=== PATIENT | female | born 1985 | race Caucasian/White ===

== ENCOUNTER 2023-01-30 12:54 | Emergency (ER) | payer OTHER, MEDICAID, SELFPAY ==
[2023-01-30 12:57] VITALS: BP 111/80; PULSE 114; RESP 16; TEMP 36.7; O2SAT 97; BMI 36.1
--- NOTE | 2023-01-30 12:57 | US_ITS ---
WS: [id number] NUMBER: Single PRESENTATION: Vertex CARDIAC ACTIVITY: 164 MOVEMENT: Satisfactory AMNIOTIC FLUID VOLUME: Normal. NIRANJAN equals 17.27 cm PLACENTA: Anterior no previa no abruption BIPARIETAL DIAMETER MEASUREMENTS: 7.6 cm, equals 30w3d. FEMORAL LENGTH MEASUREMENTS: 5.8 cm, equals 30w1d. ABDOMINAL CIRCUMFERENCE: 25.6 cm, equals 29w5d. ESTIMATED WEIGHT: 1497 g; 49% based on ultrasound ESTIMATED GESTATIONAL AGE: 30w2d US/US OB limited [id number] IMPRESSION: Viable intrauterine with single fetus estimated at 30w2d 04/08/2023.
--- NOTE | 2023-01-30 13:16 | ED_ITS ---
HPI - Abdominal Pain General: Chief Complaint: Abdominal Pain Stated Complaint: abd pain, sent by OB, 5-6 months along Time Seen by Provider: 01/30/23 12:58 Source: patient Mode of arrival: ambulatory Limitations: no limitations History of Present Illness: 37-year-old female who believes she is 5 to 6 months she came in with lower abdominal cramping and pain she was seen in labor and delivery first but sent over here she is not sure of her dates and has not had an ultrasound. She denies any bleeding or fevers Associated Symptoms: Denies chills, diarrhea, fever(s), nausea and vomiting Review of Systems Const: Denies: fever(s), chills, body aches or change in appetite Eyes: Denies: blurry vision or eye discomfort ENMT: Denies: throat pain or dental pain Card: Denies: chest pain Resp: Denies: dyspnea GI: Reports: abdominal pain; Denies: nausea, vomiting or diarrhea Musc: Denies: neck pain or back pain Skin/Breast: Denies: rash Neuro: Denies: headache(s) Physical Exam Const: COMMON NORMALS: no acute distress, patient oriented x3 and healthy appearing HENMT: COMMON NORMALS: normocephalic and atraumatic HEAD & SCALP: normocephalic and atraumatic Eye: COMMON NORMALS: conjunctivae normal CONJUNCTIVA: Yes conjunctivae normal Neck/C-Spine: COMMON NORMALS: full ROM and supple Chest: COMMONS NORMALS: normal inspection of the chest Resp: COMMON NORMALS: normal respiratory effort Cardio: COMMON NORMALS: regular rate, regular rhythm and No murmurs present (Cardio) RATE: regular rate RHYTHM: regular rhythm GI: COMMON NORMALS: Soft to palpation and non-tender INSPECTION: Yes normal to inspection PALPATION: Yes Soft to palpation Extremity: COMMON NORMALS: normal to inspection and full ROM Neuro: COMMON NORMALS: patient oriented x3, moves all extremities and no focal motor deficits Psych: COMMON NORMALS: mental status grossly normal, Normal thought process present and cooperative THOUGHT PROCESS: Normal thought process present Skin: COMMON NORMALS: no rashes or lesions noted and no wounds GENERAL SKIN EXAM: no rashes or lesions noted Course Vital Signs: Vital signs: Vital Signs Temperature 98.0 F 01/30/23 12:57 Pulse Rate 114 H 01/30/23 12:57 Respiratory Rate 16 01/30/23 12:57 Blood Pressure 111/80 01/30/23 12:57 Pulse Oximetry 97 01/30/23 12:57 Oxygen Delivery Me thod Room Air 01/30/23 12:57 MDM - Abdominal Pain Medical Decision Making Patient presents here with abdominal pain in ultrasound here shows that she is 30 weeks we will discharge her back to labor and delivery Medical Records I reviewed the patient's medical records. Discharge Plan Discharge Patient Disposition: Home Clinical Impression: Abdominal pain affecting Condition: Stable Prescriptions: No Action Excedrin Migraine 250-250-65 mg Tablet 2 tab PO Q6H PRN (Reason: Migraine Headache) Discharge Orders: Discharge ED (Routine); Ordered 01/30/23 Ordered By: Godwin Sethi Referrals: Joan Anderson MD [Primary Care Provider] - Patient Instructions: Abdominal Pain (ED) Coding Level of Care Code ED Labor And Employment Paralegal for Jerri Pedersen
[2023-01-30 14:11] LABS: Amphetamines Screen Urine Negative (Negative); Barbiturates Screen Urine Negative (Negative); Benzodiazepines Screen Urine Negative (Negative); Cocaine Screen Urine Negative (Negative); Opiate Screen Urine Negative (Negative); PCP Screen Urine Negative (Negative); THC Screen Urine Negative (Negative)
[2023-01-30 14:27] LABS: Blood Urine Neg (Negative); Glucose Urine UA Norm (Normal); Ketones Urine 1+ (Negative); Nitrate Urine Negative (Negative); Protein Urine Neg (Negative); Urine Appearance SL Hazy (CLEAR); Urine Color Yellow (Yellow); pH Urine 6 (5-7)
[2023-01-30 14:28] LABS: Add Urine Microscopic? YES; Bilirubin Urine Neg (Negative); Leukocyte Esterase Urine Trace (Negative); Urobilinogen Urine Norm (Negative)
[2023-01-30 14:32] LABS: Bacteria Urine 1+ /hpf; Mucus Urine 3+ /hpf; RBC Urine 0-4 /hpf (0-2)
[2023-01-30 14:33] LABS: Add Urine Culture? No
== END 2023-01-30 14:12 | disposition home or self-care (01) ==
PROVIDERS: Emergency Provider Emergency Medicine; PCP Family Medicine
DX: O26.893 Other specified pregnancy related conditions, third trimester (principal); R10.30 Lower abdominal pain, unspecified; Z3A.30 30 weeks gestation of pregnancy
CPT/HCPCS: 76815; 80306; 81001; 99284

== ENCOUNTER 2023-01-30 13:56 | Outpatient (CLI) | payer OTHER, MEDICAID, SELFPAY ==
[2023-01-30 13:56] VITALS: BMI 35.3
[2023-01-30 14:14] VITALS: BP 125/80; PULSE 100
[2023-01-30 15:03] LABS: Basophils % 0.2 %; Eosinophils % 0.1 %; Hematocrit 36.4 % (37.0-47.0); Hemoglobin 12.4 g/dL (11.5-15.3); Lymphocytes # 1.2 10^3/uL (0.8-4.8); Lymphocytes % 8.8 %; Mean Corpuscular HGB Conc 34.1 g/dL (30.0-36.0); Mean Corpuscular Hemoglobin 29.1 pg (28.0-34.0); Mean Corpuscular Volume 85.4 fl (81-99); Mean Platelet Volume 9.2 fL (7.4-10.4); Monocytes # 0.6 10^3/uL (0.2-0.9); Monocytes % 4.4 %; Neutrophils # 11.39 10^3/uL (1.8-7.7); Neutrophils % 85.9 %; Nucleated Red Blood Cells % 0 %; Platelet Count 195 10^3/cmm (130-400); Red Blood Count 4.26 10^6/uL (4.1-5.3); Red Cell Distribution Width 13.9 % (12.1-15.1); White Blood Count 13.3 10^3/uL (4.0-10.0)
[2023-01-30 15:27] LABS: Alanine Aminotransferase 8 U/L (0-33); Albumin Level 3.5 g/dL (3.5-5.2); Alkaline Phosphatase 98 U/L (35-105); Anion Gap 15.7 (5-19); Aspartate Amino Transferase 9 U/L (0-32); Blood Urea Nitrogen 4 mg/dL (6-20); Calcium 8.6 mg/dL (8.5-10.5); Carbon Dioxide 19 mmol/L (22-29); Chloride 102 mmol/L (98-107); Globulin 2.9 g/dL (1.3-4.6); Glomerular Filtration Rate 177.7 mL/min (90-130); Glucose 99 mg/dL (65-115); Osmolality Calculated 273 mOsm/kg (285-295); Potassium 3.7 mmol/L (3.5-5.1); Sodium 133 mmol/L (136-145); Total Bilirubin 0.3 mg/dL (0.15-1.2); Total Protein 6.4 g/dL (6.6-8.7)
[2023-01-30 15:39] LABS: Hepatitis B Surface Antigen Non-Reactive (Nonreactive)
[2023-01-30 15:44] LABS: Rapid Plasma Reagin Syphilis Nonreactive (Nonreactive)
[2023-01-30 15:46] LABS: HIV 1 & 2 Antibody Non-Reactive (Non-Reactiv); HIV 1 & 2 Antigen Non-Reactive (Non-Reactiv)
[2023-01-30] MEDS: lactated ringers 1,000 ML 999 ML IV (15:48)
[2023-01-30 16:27] VITALS: BP 123/77; PULSE 96
== END 2023-01-30 16:35 | disposition home or self-care (01) ==
LOC: OPOB 13:57 → OBGYN 13:58
PROVIDERS: PCP Family Medicine; Visit Provider Family Medicine
DX: O26.893 Other specified pregnancy related conditions, third trimester (principal); R10.9 Unspecified abdominal pain; Z3A.32 32 weeks gestation of pregnancy
CPT/HCPCS: 36415; 59025; 80053; 85025; 86592; 86762; 86850; 86900; 87340; 87491; 87591; 87806; 99211; J7120

== ENCOUNTER 2023-03-12 10:15 | Outpatient (CLI) | payer OTHER, MEDICAID, SELFPAY ==
[2023-03-12 10:15] VITALS: RESP 17; BMI 37.4
[2023-03-12 10:25] VITALS: BP 138/86; PULSE 73
[2023-03-12 10:40] VITALS: BP 128/85; PULSE 66
== END 2023-03-12 10:50 | disposition home or self-care (01) ==
LOC: OPOB 10:16 → OBGYN 10:18
PROVIDERS: PCP Family Medicine; Visit Provider Family Medicine
DX: O24.419 Gestational diabetes mellitus in pregnancy, unspecified control (principal); Z3A.00 Weeks of gestation of pregnancy not specified
CPT/HCPCS: 59025; 99211

== ENCOUNTER 2023-03-16 08:55 | Outpatient (CLI) | payer OTHER, MEDICAID, SELFPAY ==
[2023-03-16 09:00] VITALS: BMI 37.5
[2023-03-16 09:09] VITALS: BP 132/89; PULSE 87
[2023-03-16 09:24] VITALS: BP 131/87; PULSE 82
[2023-03-16 09:39] VITALS: BP 130/86; PULSE 76
[2023-03-16 10:00] VITALS: BP 130/86; PULSE 76
== END 2023-03-16 10:00 | disposition home or self-care (01) ==
LOC: OPOB 08:56 → OBGYN 08:57
PROVIDERS: PCP Family Medicine; Visit Provider Family Medicine
DX: O24.419 Gestational diabetes mellitus in pregnancy, unspecified control (principal); Z3A.00 Weeks of gestation of pregnancy not specified
CPT/HCPCS: 59025; 99211

== ENCOUNTER 2023-03-19 11:28 | Outpatient (CLI) | payer OTHER, MEDICAID, SELFPAY ==
[2023-03-19 11:33] VITALS: BMI 34.8
[2023-03-19 11:34] VITALS: RESP 20; TEMP 36.8
[2023-03-19 11:52] VITALS: BP 131/86; PULSE 81
[2023-03-19 12:07] VITALS: BP 131/80; PULSE 74
== END 2023-03-19 12:16 | disposition home or self-care (01) ==
LOC: OPOB 11:31 → OBGYN 11:33 → OPOB 11:40
PROVIDERS: PCP Family Medicine; Visit Provider Family Medicine
DX: O24.419 Gestational diabetes mellitus in pregnancy, unspecified control (principal); Z3A.00 Weeks of gestation of pregnancy not specified
CPT/HCPCS: 59025

== ENCOUNTER 2023-03-23 09:59 | Outpatient (CLI) | payer OTHER, MEDICAID, SELFPAY ==
[2023-03-23 10:12] VITALS: BP 129/79; PULSE 99
[2023-03-23 10:15] VITALS: BMI 38.4
[2023-03-23 10:17] VITALS: RESP 16
[2023-03-23 10:28] VITALS: BP 128/80; PULSE 92
[2023-03-23 10:37] VITALS: BP 128/80; PULSE 92
== END 2023-03-23 10:38 | disposition home or self-care (01) ==
LOC: OPOB 10:08 → OBGYN 10:09
PROVIDERS: PCP Family Medicine; Visit Provider Family Medicine
DX: Z36.9 Encounter for antenatal screening, unspecified (principal)
CPT/HCPCS: 59025

== ENCOUNTER 2023-03-26 10:02 | Outpatient (CLI) | payer OTHER, MEDICAID, SELFPAY ==
[2023-03-26 10:02] VITALS: BMI 38.0
[2023-03-26 10:47] VITALS: BP 126/83; PULSE 84
[2023-03-26 11:00] VITALS: BP 126/83; PULSE 84; RESP 16
== END 2023-03-26 10:50 | disposition home or self-care (01) ==
LOC: OPOB 10:04 → OBGYN 10:06
PROVIDERS: PCP Family Medicine; Visit Provider Family Medicine
DX: O24.419 Gestational diabetes mellitus in pregnancy, unspecified control (principal); Z3A.00 Weeks of gestation of pregnancy not specified
CPT/HCPCS: 59025

== ENCOUNTER 2023-03-30 09:14 | Outpatient (CLI) | payer OTHER, MEDICAID, SELFPAY ==
[2023-03-30 09:14] VITALS: BMI 38.0
[2023-03-30 09:33] VITALS: BP 136/88; PULSE 100
[2023-03-30 09:48] VITALS: BP 140/90; PULSE 85
== END 2023-03-30 09:55 | disposition home or self-care (01) ==
LOC: OPOB 09:17 → OBGYN 09:22
PROVIDERS: PCP Family Medicine; Visit Provider Family Medicine
DX: O24.419 Gestational diabetes mellitus in pregnancy, unspecified control (principal); Z3A.00 Weeks of gestation of pregnancy not specified
CPT/HCPCS: 59025

== ENCOUNTER 2023-04-02 11:18 | Outpatient (CLI) | payer OTHER, MEDICAID, SELFPAY ==
[2023-04-02 11:27] VITALS: RESP 17; TEMP 35.9
[2023-04-02 11:29] VITALS: BMI 39.5
[2023-04-02 11:42] VITALS: BP 137/92; PULSE 71
[2023-04-02 11:43] VITALS: TEMP 35.8
[2023-04-02 11:57] VITALS: BP 133/88; PULSE 65
[2023-04-02 12:12] VITALS: BP 131/88; PULSE 65
[2023-04-02 12:20] VITALS: BP 131/88; PULSE 65; RESP 17; TEMP 35.9
== END 2023-04-02 12:20 | disposition home or self-care (01) ==
LOC: OPOB 11:22 → OBGYN 11:22
PROVIDERS: PCP Family Medicine; Visit Provider Family Medicine
DX: O24.419 Gestational diabetes mellitus in pregnancy, unspecified control (principal); Z3A.00 Weeks of gestation of pregnancy not specified
CPT/HCPCS: 59025; 99211

== ENCOUNTER 2023-04-06 10:10 | Inpatient (IN) | payer OTHER, MEDICAID, SELFPAY ==
[2023-04-06] VITALS (85 sets, daily range): BP systolic 110–166; BP diastolic 70–97; PULSE 63–88; RESP 16; TEMP 36.8; O2SAT 97–100; BMI 38.7
[2023-04-06 10:58] LABS: Basophils % 0.5 %; Eosinophils # 0.1 10^3/uL (0.0-0.8); Eosinophils % 0.8 %; Hematocrit 37.7 % (36-47); Lymphocytes % 22.6 %; Mean Corpuscular HGB Conc 33.4 g/dL (30-55); Mean Corpuscular Hemoglobin 28.4 pg (27-33); Mean Corpuscular Volume 85.1 fl (85-98); Monocytes # 0.6 10^3/uL (0.2-0.9); Monocytes % 6.3 %; Neutrophils # 6.01 10^3/uL (1.8-7.7); Neutrophils % 69.2 %; Nucleated Red Blood Cells % 0 %; Platelet Count 227 10^3/cmm (157-399); Red Blood Count 4.43 10^6/uL (3.85-5.65); Red Cell Distribution Width 14.6 % (12.1-15.1); White Blood Count 8.68 10^3/uL (3.29-11.43)
[2023-04-06] MEDS: ampicillin 2,000 MG in sodium chloride 0.9% (plus) 50 ML 100 MG IV (11:12)
[2023-04-06] MEDS: dextrose 5%-lactated ringers 1,000 ML 125 ML IV ×2 (11:12→20:30)
[2023-04-06] MEDS: oxytocin 30 UNIT/500 ML BAG IV (11:12)
[2023-04-06] MEDS: ampicillin 1,000 MG in sodium chloride 0.9% (plus) 50 ML 100 MG IV ×3 (14:23→23:39)
[2023-04-06] MEDS: lactated ringers 1,000 ML 999 ML IV (19:30)
--- NOTE | 2023-04-06 20:38 | ANES.PREANE2 ---
Pre-Anesthetic Assessment Height/Weight: Height 1.68 m Weight 108.862 kg Pulse Resp BP Pulse Ox O2 Del Method 65 16 141/86 99 Room Air 04/06/23 20:35 04/06/23 10:10 04/06/23 20:30 04/06/23 20:35 04/06/23 10:08 Preop Diagnosis: labor pain epidural Familial anesthetic complications: none Was Beta Gifty taken within 24 hours: N/A Was Clonidine taken within 24 hours: N/A Social Tobacco and No alcohol Exam alert, oriented x 3, clear to auscultation bilaterally and regular rate & rhythm Airway Submandibular: within normal limits Cervical ROM: within normal limits Mallampati: Class II Dentition: full History/ROS Other Pulmonary None reported CV/HEM None reported None reported Hepatic None reported GI Gastroesophageal Reflux Disease Metabolic None reported Musc/skel None reported Neuropsych None reported Anesthetic Plan ASA status: 2 Anesthesia: Regional (specify below) Risk of > 500 ml blood loss (7ml/kg in children): No Medications/Allergies Home Medications Medication Instructions Recorded Confirmed Last Taken Type 1 caplet PO DAILY 03/12/23 04/06/23 03/26/23 09:00 History Allergies Allergy/AdvReac Type Severity Reaction Status Date / Time No Known Allergies Allergy Verified 03/26/23 10:29 Current Medications Generic Name Dose Route Start Last Admin Trade Name Noemy PRN Reason Stop Dose Admin Dextrose/Lactated Ringer's 1,000 mls @ 125 mls/hr 04/06/23 10:15 04/06/23 11:12 Dextrose 5%-Lactated Ringers IV 125 mls/hr .Q8H DIANA Administration Ampicillin Sodium 1,000 mg/ 50 mls @ 100 mls/hr 04/06/23 14:15 04/06/23 19:34 Sodium Chloride IV Infused Q4H DIANA Infusion Protocol Oxytocin 30 unit in 500 mls @ 1 mls/hr 04/06/23 10:45 04/06/23 11:30 Pitocin IV 2 milliunit/min .Q24H DIANA 2 mls/hr Titration Protocol 1 MILLIUNIT/MIN Lactated Ringer's 1,000 mls @ 999 mls/hr 04/06/23 19:36 04/06/23 19:30 Lactated Ringers IV 999 mls/hr .Q1H1M PRN Administration See label comments PFSH Anesthesia Female Reproductive History : 3 Data Anesthesia 04/06/23 10:45 Short CBC 04/06/23 Range/Units 10:45 WBC 8.68 (3.29-11.43) 10^3/uL Hgb 12.60 (11.27-16.99) g/dL Hct 37.7 (36-47) % MCV 85.1 (85-98) fl Plt Count 227 (157-399) 10^3/cmm Neut % (Auto) 69.2 % Neut # (Auto) 6.01 (1.8-7.7) 10^3/uL Cardiac Studies: No Data to Display
[2023-04-06] MEDS: ROPivacaine syringe 100 MG/50 ML SYRINGE 13 MG EPIDURAL (20:59)
--- NOTE | 2023-04-06 21:04 | P.ANES_ITS ---
Anesthesia Procedures Procedure/Date: 04/06/23 epidural Procedure Narrative: epidural complete, bolus given, epidural pump initiated with TELEGRAPH SERVICE RATER education given, vitals taken during procedure and satisfactory throughout, patient admits to decrease pain, report of procedure to OB RN Epidural: Time Out Performed: Yes Consents Signed: Procedure Consent Consent: requested by attending/covering physician, from patient, risks and benefits reviewed and patient agrees to proceed Lumbar Level: L3-L4 Epidural position: sitting Epidural procedure: sterile prep of area, 1% lidocaine to numb the area (3 mL), 18 g needle, negative for paresthesia passed, neg for paresthesia, test dose given, 1.5% xylocaine 1:200k epi (5 mL), 0.2% Ropivacaine bolus ml (5 mL), placed PCEA, no systemic response, sterile dressing applied, L.U.D. no apparent complications and 0.2% Ropiavacaine @ mls/hr (13 mL/hr)
[2023-04-07] VITALS (39 sets, daily range): BP systolic 110–163; BP diastolic 60–99; PULSE 62–103; RESP 16–19; TEMP 36.2–36.8; O2SAT 96–100
[2023-04-07] MEDS: ROPivacaine syringe 100 MG/50 ML SYRINGE 13 MG EPIDURAL (00:15)
--- NOTE | 2023-04-07 01:32 | PM.OPHPUD ---
Labor & Delivery H&P Update Date of Procedure: April 07, 2023 Date H&P Performed: 04/30/23 Admission Diagnosis: IUP [id number] induced hypertension Advanced maternal age Gestational diabetes mellitus diet controlled Preop diagnosis: labor pain Primary indication for procedure: Induction and expectant management of labor and delivery
--- NOTE | 2023-04-07 01:34 | P.PCNOB_ITS ---
Delivery Note: Date of delivery: April 07, 2023 Procedure: Normal spontaneous vaginal delivery Estimated blood loss (mL): 250 Pre-Delivery Course: The patient had late onset care as she did not know she was till approximately 30 weeks gestation. She failed her 3-hour glucose tolerance test and was diagnosed with gestational diabetes mellitus that was very well c ontrolled with diet. Blood type O+, antibody negative, hepatitis B nonreactive, rubella immune, GC chlamydia negative, RPR nonreactive, GBS positive. Delivery: This is a 37-year-old G4, P3 at 39 weeks 4 days gestation who presented to labor and delivery for routine NST and was found to have elevated blood pressures 140s over 90s. Since she was already 39 weeks gestation decision was made to proceed with induction. Her cervix was favorable and she was started on Pitocin. She received an epidural for pain management. She was GBS positive and received multiple doses of ampicillin prior to delivery. Rupture of membranes was approximately 30 minutes prior to delivery. She had a normal spontaneous vaginal delivery of a viable female infant weight 2935 g, 6 pounds 8 ounces, Apgars 8 and 9 over an intact perineum. The was suctioned at delivery and placed on the mother's chest. The cord was clamped and cut. The placenta was delivered grossly intact and normal to inspection. There was a second-degree perineal laceration that was sutured using 3-0 chromic. Mother and infant were doing well after delivery. Coding Level of Care Code Acute Code for Chg Fwd Diagnoses
[2023-04-07] MEDS: docusate sodium 100 mg Capsule PO ×2 (08:58→15:59)
[2023-04-07] MEDS: ibuprofen 800 mg tablet PO ×3 (08:58→20:19)
[2023-04-07] MEDS: prenatal vitamin Capsule 1 CAP PO (08:58)
[2023-04-07 15:10] LABS: Hematocrit 35.5 % (36-47); Mean Corpuscular HGB Conc 32.7 g/dL (30-55); Mean Corpuscular Hemoglobin 28.4 pg (27-33); Mean Corpuscular Volume 86.8 fl (85-98); Mean Platelet Volume 9.9 fL (7.4-10.4); Platelet Count 172 10^3/cmm (157-399); Red Blood Count 4.09 10^6/uL (3.85-5.65); Red Cell Distribution Width 14.7 % (12.1-15.1); White Blood Count 8.83 10^3/uL (3.29-11.43)
[2023-04-07] MEDS: lanolin oint 7 gm 1 APPLIC TOPICAL (20:19)
[2023-04-08] VITALS (13 sets, daily range): BP systolic 121–163; BP diastolic 76–104; PULSE 68–101; RESP 16–19; TEMP 36.4–36.8; O2SAT 96–98
[2023-04-08] MEDS: metoclopramide 5 mg/mL SDV 2 mL 10 MG IVP (07:54)
[2023-04-08] MEDS: ceFAZolin 2,000 MG in sodium chloride 0.9% (plus) 50 ML 100 MG IV (07:54)
[2023-04-08] MEDS: famotidine 20 mg/2 mL INJ IVP (07:54)
[2023-04-08] MEDS: lidocaine-epi 1% 20 mL INJ INJECTION (09:27)
--- NOTE | 2023-04-08 09:36 | P.OP_ITS ---
Operative Report Date of procedure: April 08, 2023 Pre-op diagnosis: Desired permanent surgical sterilization Procedure done: bilateral tubal ligation Specimens removed/disposition: Segments of right and left fallopian tubes Pathology: Segments of right and left fallopian tubes Surgeon: Joan Anderson MD Estimated blood loss (mL): 5 IV fluids (mL): 400 Complications: Body habitus Procedure: The patient was taken to the OR where general anesthesia was administered. She was prepped and draped in normal sterile fashion in dorsal supine position. A curvilinear infraumbilical incision was made sharply and then carried through to the underlying layer of fascia bluntly using a hemostat. The fascia was grasped with Allis clamps and entered sharply using the Mayos. The peritoneum was entered bluntly. There was a significant amount of omentum but eventually the left fallopian tube was grasped with a [place] and brought into the operative field. Fimbria were identified. A distal portion of the tube was ligated and excised. Tubal ostia were identified. The cut portions of the tube were coagulated using the Bovie. The proximal tie snapped off during coagulation but the tube appeared to be hemostatic. Both portions of the tube were returned to the abdomen. The right fallopian tube was then grasped with a Dolores and brought into the operative field. There was some scarring of the fimbria to the ovary. A distal portion of the tube was ligated, along with the epophoron, and the distal portion of the tube was excised. Tubal ostia were identified. The cut portions of the tube were then coagulated using the Bovie. The cut portions of the tube were then returned to the abdomen. There was omental scarring to the peritoneum and significant care was taken using a small malleable while suturing the peritoneum and fascia using 0 Vicryl. The subcutaneous tissue was then used sutured using 4-0 Vicryl. The skin was then sutured using 4-0 Vicryl in a running fashion. Steri-Strips and a pressure bandage were applied. Patient was awakened and went to recovery in stable condition. Sponge instrument and needle counts were correct.
--- NOTE | 2023-04-08 09:51 | PM.DCS ---
Discharge Providers Date of Admission: 04/06/23 10:10 Date of Discharge: April 08, 2023 Attending Provider at Admission: Joan Anderson MD Attending Provider at Discharge: Joan Anderson MD Primary Care Provider: Joan Anderson MD Reason for Visit Reason for Visit: NST Hospital Course Hospital Course This is a 37-year-old G4 now P4 who had a normal spontaneous vaginal delivery of a viable female infant. On day #1 she underwent a bilateral tubal ligation. She was ambulating, tolerating a regular diet, had decreased vaginal bleeding and pain was controlled with oral medications. Physical Exam Narrative: Alert and oriented, sitting up in bed, heart regular rate and rhythm, lungs clear to auscultation bilaterally, abdomen is soft and nontender, extremities have trace edema but no calf tenderness Urinary Catheter Management: Solorzano: Cath Placed During This Visit: yes, but has since been removed by the nurse Reason for Continuing Indwelling Catheter: Required Immobilization for Trauma or Surgery or Anesthesia Urinary Catheter Date of Insertion: 04/06/23 Urinary Catheter Time of Insertion: 21:43 Date Urinary Catheter Removed: 04/07/23 Time Urinary Catheter Discontinued: 01:03 Discharge Data Studies Completed and Pending Laboratory Results WBC 8.83 10^3/uL (3.29-11.43) 04/07/23 14:26 RBC 4.09 10^6/uL (3.85-5.65) 04/07/23 14:26 Hgb 11.60 g/dL (11.27-16.99) 04/07/23 14:26 Hct 35.5 % (36-47) L 04/07/23 14:26 MCV 86.8 fl (85-98) 04/07/23 14:26 MCH 28.4 pg (27-33) 04/07/23 14:26 MCHC 32.7 g/dL (30-55) 04/07/23 14:26 RDW 14.7 % (12.1-15.1) 04/07/23 14:26 Plt Count 172 10^3/cmm (157-399) 04/07/23 14:26 MPV 9.9 fL (7.4-10.4) 04/07/23 14:26 Neut % (Auto) 69.2 % 04/06/23 10:45 Lymph % (Auto) 22.6 % 04/06/23 10:45 Bartholomew % (Auto) 6.3 % 04/06/23 10:45 Eos % (Auto) 0.8 % 04/06/23 10:45 Baso % (Auto) 0.5 % 04/06/23 10:45 Neut # (Auto) 6.01 10^3/uL (1.8-7.7) 04/06/23 10:45 Lymph # (Auto) 2.0 10^3/uL (0.8-4.8) 04/06/23 10:45 Bartholomew # (Auto) 0.6 10^3/uL (0.2-0.9) 04/06/23 10:45 Eos # (Auto) 0.1 10^3/uL (0.0-0.8) 04/06/23 10:45 Baso # (Auto) 0.0 10^3/uL (0.0-0.1) 04/06/23 10:45 Nucleated RBC % (auto) 0 % 04/06/23 10:45 Nucleated RBCs # 0.0 /100WBC 04/06/23 10:45 Vitals Last Vital Signs Temp 97.8 F 04/08/23 05:00 Pulse 81 04/08/23 05:00 Resp 16 04/08/23 05:00 BP 121/76 04/08/23 05:00 Pulse Ox 97 04/08/23 05:00 O2 Del Method Room Air 04/08/23 05:00 Discharge Plan Discharge Patient Disposition: Home Condition: Stable Prescriptions: New ibuprofen 800 mg Tablet 800 mg PO TID PRN (Reason: Abdominal Discomfort) Qty: 30 0RF hydrocodone-acetaminophen 5-325 mg tablet 1 tab PO Q4H PRN (Reason: pain) Qty: 14 0RF Continued 1 caplet PO DAILY Discharge Orders: Discharge Order (Routine); Ordered 04/08/23 Ordered By: Joan Anderson Referrals: Joan Anderson MD [Primary Care Provider] - 1 week Discharge Diet: Usual diet Discharge Activity: Limit activity as instructed Patient Instructions: Opioid Safety Activity Restrictions/Additional Instructions: Nothing per vagina for 6 weeks. No lifting more than 10 lbs for 2 weeks. Discharge Attestations Time Spent in Discharge Care*: less than 30 min Quality Metrics Clinical Quality Measures [ No reported AMI, CVA or VTE this stay] Coding Level of Care Code Acute Code for Chg Fwd Diagnoses
--- NOTE | 2023-04-08 10:30 | ANE.PACU2 ---
Inpatient post-anesthesia follow up: Airway intact: Yes Vital signs: Temperature 97.6 F Pulse Rate 81 Respiratory Rate 16 Blood Pressure 152/89 Pulse Oximetry 96 Oxygen Delivery Me thod Room Air Oxygen Flow Rate Fraction of Inspir ed Oxygen Hydration adequate: Yes Nausea and vomiting: No Pain level: 1 Mental status: Baseline
--- NOTE | 2023-04-08 10:38 | PC.NURSE ---
Patient ambulated to OR.
--- NOTE | 2023-04-08 10:39 | PC.NURSE ---
Patient moved from OR to room via bed. Once in room patient ambulated to bathroom. Patient assisted back into bed.
[2023-04-08] MEDS: ibuprofen 800 mg tablet PO ×2 (10:48→16:42)
[2023-04-08] MEDS: docusate sodium 100 mg Capsule PO (10:48)
[2023-04-08] MEDS: prenatal vitamin Capsule 1 CAP PO (10:48)
[2023-04-08] MEDS: HYDROcodone-acetaminophen 5-325 mg Tablet PO (16:42)
== END 2023-04-08 17:00 | disposition home or self-care (01) | DRG 798 ==
LOC: OPOB 04-07 08:11 → OBGYN 04-07 08:12
PROVIDERS: Admitting Provider Family Medicine; PCP Family Medicine; Visit Provider Family Medicine
PROC: 0UB70ZZ Excision of Bilateral Fallopian Tubes, Open Approach (ICD-10-PCS; CPT 58605; principal; 2023-04-08 08:00)
DX: O13.4 Gestational [pregnancy-induced] hypertension without significant proteinuria, complicating childbirth (principal); Z37.0 Single live birth; O24.420 Gestational diabetes mellitus in childbirth, diet controlled; Z3A.39 39 weeks gestation of pregnancy; O99.824 Streptococcus B carrier state complicating childbirth; O70.1 Second degree perineal laceration during delivery; Z30.2 Encounter for sterilization
CPT/HCPCS: 36415; 51702; 58605; 59025; 59409; 85025; 85027; 88302; 96374; 96376; J0290; J0330; J0690; J2405; J2590; J2704; J2765; J2795; J3010; J3490; J7120; J7121